=== PATIENT | male | born 1975 | race Caucasian/White ===

== ENCOUNTER 2017-05-16 22:51 | Observation (INO) | payer OTHER ==
[~2017-05-16] VITALS: Ht 172.7 cm; Wt 74.0 kg
[2017-05-16] MEDS ORDERED: SODIUM CHLORIDE 0.9% 1000ML 1,000 ML IV SCH (23:01)
[2017-05-16 23:09] LABS: BASO % 0.2 %; BASO ABS # 0.02 K/uL (0-0.2); COMPLETE YES; EOS % 1.4 %; HEMATOCRIT 50.8 % (42-52); IG% 0.2 %; LYMPH % 28.8 %; LYMPH ABS # 3.46 K/uL (1.2-3.4); MEAN CELL VOLUME 92.7 fL (80-100); MEAN CORPUSCULAR HEMOGLOBIN 33.6 pg (25-34); MEAN CORPUSCULAR HGB CONC 36.2 g/dl (32-36); MEAN PLATELET VOLUME 10.5 fL (7.4-10.4); MONO % 6.4 %; PLATELET COUNT 298 K/uL (130-400); RED BLOOD COUNT 5.48 M/uL (4.7-6.1); WHITE BLOOD COUNT 12.03 K/uL (4.8-10.8)
[2017-05-16 23:29] LABS: BLOOD UREA NITROGEN 15 mg/dl (7-18); BUN/CREATININE RATIO 13.9 (10-20); CALCIUM 8.9 mg/dl (8.5-10.1); CARBON DIOXIDE 28 mmol/L (21-32); CHLORIDE 105 mmol/L (98-107); GLUCOSE 133 mg/dl (70-99); MAGNESIUM 2.2 mg/dl (1.8-2.4); POTASSIUM 3.3 mmol/L (3.5-5.1); SODIUM 139 mmol/L (136-145)
[2017-05-16 23:30] LABS: PARTIAL THROMBOPLASTIN RATIO 1.2; PROTHROMBIN TIME (PATIENT) 10.5 SECONDS (9.0-12.0)
[2017-05-16] MEDS ORDERED: SODIUM CHLORIDE 0.9% 500ML 500 ML IV STA (23:37)
[2017-05-16] MEDS ORDERED: OPTIRAY 320 IV PRN (23:45)
[2017-05-17] MEDS ORDERED: POTASSIUM CHLORIDE 10 MEQ TABCR PO STA (00:19)
[2017-05-17] MEDS ORDERED: MoRPHine SULFATE 4 MG/ML 1 ML CARP\\VIAL IV STA (00:35)
--- NOTE | 2017-05-17 00:54 | History and Physical ---
History & Physical Date & Time of Service: May 17, 2017 at 00:54 . Chief Complaint: Chest Pain . Primary Care Physician: No Doctor, Assigned . History of Present Illness Source: patient, hospital records 41 YO male from [place]. He does not have a PCP. Enjoys good health. Physically active, without limitations. 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 Ate spaghetti for dinner tonight around 17:30. Laid down to rest. Awoke around 18:30 with chest pain. Pain described as heavy midsternal pressure 8/10 that radiated to his left arm. [place] diaphoretic and nauseated. No vomiting. Somewhat dyspneic. Called EMS. They administered aspirin and NTG without much improvement. Brought to ED. Received IV morphine with improvement of the pain. Smoker. No other personal risk factors for CAD. No apparent family history of premature vascular disease. . Past Medical/Surgical History No chronic medical problems. S/P amputation left ring finger for osteo. . Family History Mother- CKD Father- cirrhosis Brother- DM Grandmother- DM Aunt- DM Cousin- DM Grandfather- pancreatic Ca Grandmother- CKD . Social History Smoking Status: Current Every Day Smoker Alcohol Use: none Drug Use: none Occupational Status: employed Allergies Coded Allergies: Penicillins (Verified Allergy, Severe, HIVES-RASH, 05/16/17) Prednisone (Verified Allergy, Severe, ITCHY "ALL OVER", "FELT LIKE I WAS 20 FT. TALL"., 05/16/17) Home Medications No Active Prescriptions or Reported Meds Review of Systems As noted above in HPI. Otherwise, unremarkable. . Physical Exam Vital Signs Date Time Temp Pulse Resp B/P (MAP) Pulse Ox O2 Delivery O2 Flow Rate FiO2 05/17/17 00:35 87 20 129/75 98 Room Air 05/16/17 23:05 96 Room Air 05/16/17 22:59 92 05/16/17 22:54 95 Room Air 05/16/17 22:54 36.9 96 20 148/88 96 Room Air General Appearance: WD/WN, no apparent distress Head: normocephalic, atraumatic Eyes: normal inspection, PERRL, EOMI, sclerae normal ENT: normal ENT inspection, hearing grossly normal, pharynx normal Neck: supple, no adenopathy, thyroid normal, trachea midline Respiratory/Chest: lungs clear, normal breath sounds, no respiratory distress, no accessory muscle use Cardiovascular: regular rate, rhythm, no edema, no gallop, no JVD, no murmur, normal peripheral pulses, + pertinent finding (carotids 2/2; no pericardial friction rub) Abdomen/GI: normal bowel sounds, non tender, soft, no organomegaly, no pulsatile mass Extremities/Musculoskelatal: no calf tenderness, no pedal edema 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 (PERRL, EOMI, no dysarthria, no facial palsy), no motor/sensory deficits (grossly intact), alert, normal mood/ affect, oriented x 3 Skin: normal color, warm/dry Lymphatic: no adenopathy (cervical) Diagnostics Laboratory Results Results Past 24 Hours Test 05/16/17 22:30 05/16/17 23:07 Range/Units White Blood Count 12.03 4.8-10.8 K/uL Red Blood Count 5.48 4.7-6.1 M/uL Hemoglobin 18.4 14.0-18.0 g/dL Hematocrit 50.8 42-52 % Mean Corpuscular Volume 92.7 80-100 fL Mean Corpuscular Hemoglobin 33.6 25-34 pg Mean Corpuscular Hemoglobin Concent 36.2 32-36 g/dl Platelet Count 298 130-400 K/uL Mean Platelet Volume 10.5 7.4-10.4 fL Neutrophils (%) (Auto) 63.0 % Lymphocytes (%) (Auto) 28.8 % Monocytes (%) (Auto) 6.4 % Eosinophils (%) (Auto) 1.4 % Basophils (%) (Auto) 0.2 % Neutrophils # (Auto) 7.58 1.4-6.5 K/uL Lymphocytes # (Auto) 3.46 1.2-3.4 K/uL Monocytes # (Auto) 0.77 0.11-0.59 K/uL Eosinophils # (Auto) 0.17 0-0.5 K/uL Basophils # (Auto) 0.02 0-0.2 K/uL RDW Standard Deviation 44.3 36.4-46.3 fL RDW Coefficient of Variation 13.0 11.5-14.5 % Immature Granulocyte % (Auto) 0.2 % Immature Granulocyte # (Auto) 0.03 0.00-0.02 K/uL Prothrombin Time 10.5 9.0-12.0 SECONDS Prothromb Time International Ratio 1.0 0.9-1.1 Activated Partial Thromboplast Time 30.8 21.0-31.0 SECONDS Partial Thromboplastin Ratio 1.2 Sodium Level 139 136-145 mmol/L Potassium Level 3.3 3.5-5.1 mmol/L Chloride Level 105 98-107 mmol/L Carbon Dioxide Level 28 21-32 mmol/L Anion Gap 6.0 3-11 mmol/L Blood Urea Nitrogen 15 7-18 mg/dl Creatinine 1.10 0.60-1.40 mg/dl Est Creatinine Clear Calc Drug Dose 86.3 ml/min Estimated GFR () 96.8 Estimated GFR (Non- 83.5 BUN/Creatinine Ratio 13.9 10-20 Random Glucose 133 70-99 mg/dl Calcium Level 8.9 8.5-10.1 mg/dl Magnesium Level 2.2 1.8-2.4 mg/dl Total Creatine Kinase 81 39-308 U/L Creatine Kinase MB < 0.5 0.5-3.6 ng/ml Creatine Kinase MB Ratio 0-3.0 Troponin I < 0.015 0-0.045 ng/ml Lipase 138 73-393 U/L Chemistry Specimen Hemolysis Bedside Troponin I < 0.030 0-0.045 ng/ml Diagnostic Radiology Chest x-ray reviewed by the undersigned. No cardiomegaly, infiltrates, effusions, CHF, pneumothorax. Formal interpretation by Radiology pending. CT head reviewed by the undersigned. Preliminary Radiology report per [facility]: negative CTA chest reviewed by the undersigned. Preliminary Radiology report per [facility]: Negative for PE. Negative for aortic dissection. Calcified granulomas in lung and spleen. Calcified hilar, mediastinal, portocaval lymph nodes. Mild noncolcified tree-in-bud nodularity adjacent to the RLL and LLL calcified granulomas. Findings are most likely related to remote granulomatous disease, but activity of disease should be evaluated for clinically. . EKG EKG performed at 22:54 reviewed and demonstrated NSR at 88 / minute, no acute ST or T wave abnormalities. . Impression Assessment and Plan CHEST PAIN Suspect GI etiology. Check serial cardiac markers and EKG's. Consider EST if markers negative. Consult Cardiology if any concerns. ABNORMAL CT CHEST CT suggests old granulomatous disease. No fever, cough, hemoptysis, weight loss, etc. Patient advised to seek medical attention if he develops pulmonary symptoms. HYPOKALEMIA K = 3.3. Received KCl in ED. Recheck in a.m. SMOKING Importance of smoking cessation discussed. VTE PROPHYLAXIS Very low risk for VTE. Ambulate. Chemoprophylaxis or mechanical prophylaxis not indicated. DISPOSITION Expected discharge to home. . VTE Prophylaxis VTE Risk Assessment Done? Y/N: Yes Risk Level: Very Low Given or contraindicated: Treatment not indicated
--- NOTE | 2017-05-17 00:54 | EMERGENCY ROOM VISIT NOTE ---
History First contact with patient: 22:53 Chief Complaint: CHEST PAIN Stated Complaint: CHEST PAIN Nursing Triage Summary: patient states tonight at 1830 he had c/o left sided chest pain/pressure that radiating down his left arm. patient was given 324mg aspirin and nitro by EMS. patient states pain remains 8/10. patient also c/o numbness and tingling to extremities. History of Present Illness The patient is a 41 year old male who presents to the Emergency Room with complaints of left-sided chest pain that goes up to his shoulder and down his left arm with left arm and leg tingling since he woke up from sleep at 9:00 tonight. Patient went to bed at 6:30 and felt fine. 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 No prior history of heart disease. No family history of heart disease. No history of PE or DVT. No family history of clotting disorder. No injury to the area. He describes the pain as aching, ranging in severity 5 out of 10. Nothing makes it better or worse. EMS gave him aspirin nitroglycerin. This did not help. Patient denies dyspnea, abdominal pain, weakness, headache, lightheadedness, dizziness, recent illness, cold symptoms. He is tolerated by mouth fluids and food. Review of Systems See HPI for pertinent positives & negatives. A total of 10 systems reviewed and were otherwise negative. Past Medical/Surgical History none Social History Smoking Status: Current Every Day Smoker Smokeless Tobacco Use: No Alcohol Use: none Drug Use: none Occupation Status: employed Current/Historical Medications No Active Prescriptions or Reported Meds Physical Exam Vital Signs Date Time Temp Pulse Resp B/P (MAP) Pulse Ox O2 Delivery O2 Flow Rate FiO2 05/17/17 00:35 87 20 129/75 98 Room Air 05/16/17 23:05 96 Room Air 05/16/17 22:59 92 05/16/17 22:54 95 Room Air 05/16/17 22:54 36.9 96 20 148/88 96 Room Air Physical Exam VITALS: Vitals are noted on the nurse's note and reviewed by myself. Vital signs stable. GENERAL:pleasant male, in no acute distress, nondiaphoretic, well-developed well -nourished. SKIN: The skin was without rashes, erythema, edema, or bruising. There is no tenting of the skin. Capillary reflex less than 2 seconds. HEAD: Normocephalic atraumatic. EARS: External auditory canals clear, tympanic membranes pearly drummond without erythema or effusion bilaterally. EYES: Pupils equal round and reactive to light and accommodation. Conjunctivae without injection, sclerae without icterus. Extraocular movements intact. NOSE: Patent, turbinates without inflammation or discharge. MOUTH: Mucous membranes moist. Pharynx without erythema or exudate. Uvula midline. Airway patent. Tongue does not deviate. NECK: Supple without nuchal rigidity. No lymphadenopathy. No thyromegaly. Cervical spine is nontender. No JVD. HEART: Regular rate and rhythm without murmurs gallops or rubs. LUNGS: Clear to auscultation bilaterally without wheezes, rales or rhonchi. No dullness to percussion. No retractions or accessory muscle use. ABDOMEN: Positive bowel sounds x 4. Normal tympanic percussion. Soft, nontender, without masses or organomegaly. Castaneda sign negative. No guarding or rebound tenderness. MUSCULOSKELETAL: No muscle atrophy, erythema, or edema noted. 5 out of 5 strength throughout NEURO: Patient was alert and oriented to person place and time. Normal sensation to light and sharp touch. No focal neurological deficits. Cranial nerves II through XII grossly intact. No pronator drift. Cerebellar exam intact. Medical Decision & Procedures Laboratory Results 05/16/17 22:30 Red Blood Count 5.48, Mean Corpuscular Volume 92.7, Mean Corpuscular Hemoglobin 33.6, Mean Corpuscular Hemoglobin Concent 36.2, Mean Platelet Volume 10.5, Neutrophils (%) (Auto) 63.0, Lymphocytes (%) (Auto) 28.8, Monocytes (%) (Auto) 6.4, Eosinophils (%) (Auto) 1.4, Basophils (%) (Auto) 0.2, Neutrophils # (Auto) 7.58, Lymphocytes # (Auto) 3.46, Monocytes # (Auto) 0.77, Eosinophils # (Auto) 0.17, Basophils # (Auto) 0.02 05/16/17 22:30 Test 05/16/17 22:30 05/16/17 23:07 White Blood Count 12.03 K/uL (4.8-10.8) Red Blood Count 5.48 M/uL (4.7-6.1) Hemoglobin 18.4 g/dL (14.0-18.0) Hematocrit 50.8 % (42-52) Mean Corpuscular Volume 92.7 fL (80-100) Mean Corpuscular Hemoglobin 33.6 pg (25-34) Mean Corpuscular Hemoglobin Concent 36.2 g/dl (32-36) Platelet Count 298 K/uL (130-400) Mean Platelet Volume 10.5 fL (7.4-10.4) Neutrophils (%) (Auto) 63.0 % Lymphocytes (%) (Auto) 28.8 % Monocytes (%) (Auto) 6.4 % Eosinophils (%) (Auto) 1.4 % Basophils (%) (Auto) 0.2 % Neutrophils # (Auto) 7.58 K/uL (1.4-6.5) Lymphocytes # (Auto) 3.46 K/uL (1.2-3.4) Monocytes # (Auto) 0.77 K/uL (0.11-0.59) Eosinophils # (Auto) 0.17 K/uL (0-0.5) Basophils # (Auto) 0.02 K/uL (0-0.2) RDW Standard Deviation 44.3 fL (36.4-46.3) RDW Coefficient of Variation 13.0 % (11.5-14.5) Immature Granulocyte % (Auto) 0.2 % Immature Granulocyte # (Auto) 0.03 K/uL (0.00-0.02) Prothrombin Time 10.5 SECONDS (9.0-12.0) Prothromb Time International Ratio 1.0 (0.9-1.1) Activated Partial Thromboplast Time 30.8 SECONDS (21.0-31.0) Partial Thromboplastin Ratio 1.2 Anion Gap 6.0 mmol/L (3-11) Est Creatinine Clear Calc Drug Dose 86.3 ml/min Estimated GFR () 96.8 Estimated GFR (Non- 83.5 BUN/Creatinine Ratio 13.9 (10-20) Calcium Level 8.9 mg/dl (8.5-10.1) Magnesium Level 2.2 mg/dl (1.8-2.4) Total Creatine Kinase 81 U/L (39-308) Creatine Kinase MB < 0.5 ng/ml (0.5-3.6) Creatine Kinase MB Ratio (0-3.0) Troponin I < 0.015 ng/ml (0-0.045) Lipase 138 U/L (73-393) Chemistry Specimen Hemolysis Bedside Troponin I < 0.030 ng/ml (0-0.045) Medications Administered Medications (Trade) Dose Ordered Sig/Ilia Route Start Time Stop Time Status Last Admin Dose Admin Sodium Chloride 1,000 ml @ 50 mls/hr Q20H IV 05/16/17 23:01 06/15/17 23:00 05/16/17 23:11 50 MLS/HR Sodium Chloride 500 ml @ 999 mls/hr Q31M STAT IV 05/16/17 23:37 05/17/17 00:07 DC 05/16/17 23:37 999 MLS/HR Potassium Chloride (Klor-Con M10) 20 meq NOW STAT PO 05/17/17 00:19 05/17/17 00:20 DC 05/17/17 00:43 20 MEQ Morphine Sulfate (MoRPHine SULFATE INJ) 4 mg NOW STAT IV 05/17/17 00:35 05/17/17 00:36 DC 05/17/17 00:42 4 MG ED Course Prior records/ancillary studies reviewed. Triage Nursing notes reviewed. Additional history obtained from EMS The patient's history was concerning for chest pain and left sided tingling. Differential diagnosis: Etiologies such as cardiac ischemia, CVA, neurologic, aortic dissection, pulmonary embolism, pneumonia, pneumothorax, musculoskeletal, infections, pericarditis, myocarditis, esophageal rupture, gastrointestinal, as well as others were entertained. Physical examination: As above. ER treatment provided: EMS gave ASA and nitro with no change in symptoms On reassessment the patient felt better. Diagnostic interpretation by me: The electrocardiogram was negative for pathologic change. Normal sinus, normal intervals, no acute ST-T wave changes. Impression normal sinus rhythm interpreted by myself. The labs revealed negative troponin. Imaging studies: Chest x-ray with perihilar Lymph node enlargement per my interpretation. CTA negative for PE. Granulomatous disease. Head CT negative for intracranial bleed. Consultation: A consultation was placed with the hospitalist, Dr Lord. The case was discussed and diagnostics were reviewed. The patient was evaluated in the ER for further treatment. Exam and history seem consistent with chest pain with concerns for possible cardiac in etiology. Patient will be evaluated by medicine for possible admission. Negative CTA for PE. First troponin negative. Normal EKG.By the evaluation outlined above emergent etiologies such as aortic dissection, pulmonary embolism, pneumonia, pneumothorax, pericarditis, myocarditis, gastrointestinal, as well as others were deemed relatively unlikely. The pt informed about the findings as listed above. All questions were answered and pleased with the treatment. case reviewed with my Attending Medical Decision as above Medication Reconcilliation Current Medication List: was personally reviewed by me Blood Pressure Screening Patient's blood pressure: Normal blood pressure Impression Primary Impression: Substernal precordial chest pain Additional Impression: Tingling Departure Information Dispostion Being Evaluated By Hospitalist Condition FAIR Prescriptions No Active Prescriptions or Reported Meds Patient Instructions My [facility] Problem Qualifiers
[2017-05-17] MEDS ORDERED: NITROGLYCERIN 0.4 MG SL PER TAB CHARGE SL PRN (01:00)
[2017-05-17] MEDS ORDERED: ALUMINUM/MAGNESIUM/SIMETH (MAALOX MAX) 30 ML UDC PO PRN (01:00)
[2017-05-17] MEDS ORDERED: ACETAMINOPHEN 325 MG TAB PO PRN (01:00)
[2017-05-17] MEDS ORDERED: IV FLUIDS COMPLETED PRN (01:15)
[2017-05-17 01:39] VITALS: BP 116/68; PULSE 68; TEMP 36.9; O2SAT 95; Ht 172.7 cm; Wt 74.0 kg
[2017-05-17] MEDS ORDERED: PANTOprazole SOD 40 MG TAB PO ONE (01:45)
[2017-05-17 04:47] VITALS: BP 119/72; PULSE 72; TEMP 36.9; O2SAT 97
[2017-05-17 06:16] LABS: HEMATOCRIT 47.3 % (42-52); MEAN CELL VOLUME 93.7 fL (80-100); MEAN CORPUSCULAR HEMOGLOBIN 32.7 pg (25-34); MEAN CORPUSCULAR HGB CONC 34.9 g/dl (32-36); MEAN PLATELET VOLUME 10.7 fL (7.4-10.4); PLATELET COUNT 260 K/uL (130-400); RED BLOOD COUNT 5.05 M/uL (4.7-6.1)
[2017-05-17 06:43] LABS: ALT/SGPT 27 U/L (12-78); AMYLASE 32 U/L (25-115); AST/SGOT 10 U/L (15-37); BLOOD UREA NITROGEN 14 mg/dl (7-18); BUN/CREATININE RATIO 15.7 (10-20); CALCIUM 8.5 mg/dl (8.5-10.1); CARBON DIOXIDE 28 mmol/L (21-32); CHLORIDE 110 mmol/L (98-107); CREATININE 0.91 mg/dl (0.60-1.40); GLUCOSE 100 mg/dl (70-99); POTASSIUM 3.6 mmol/L (3.5-5.1); SODIUM 141 mmol/L (136-145)
[2017-05-17 06:48] LABS: ALB/GLOB RATIO 1.1 (0.9-2); ALKALINE PHOSPHATASE 70 U/L (45-117); CHOLESTEROL 195 mg/dl (0-200); CHOLESTEROL/HDL RATIO 5.9; HDL CHOLESTEROL 33 mg/dl; LDL CHOLESTEROL CALCULATED 113 mg/dl; TRIGLYCERIDES 247 mg/dl (0-150); VERY LOW DENSITY LIPOPROT CALC 49 mg/dl
--- NOTE | 2017-05-17 06:56 | DIAGNOSTIC IMAGING REPORT ---
HEAD WITHOUT CONTRAST (CT) CLINICAL HISTORY: 41 years-old Male presenting with Stroke. TECHNIQUE: Multidetector CT imaging of the head was performed without the use of intravenous contrast. IV contrast: None. A dose lowering technique was used consistent with the principles of ALARA (as low as reasonably achievable). COMPARISON: None. CT DOSE (mGy.cm): The estimated cumulative dose is 614.27 mGy.cm. FINDINGS: Diploma Dental Assistant topogram: Unremarkable. Ventricles and sulci normal in size. Brain parenchyma normal in appearance with preserved drummond-white differentiation. No mass effect or midline shift. No hemorrhage or acute territorial infarct. No extra-axial fluid collection. Paranasal sinuses and mastoid air cells clear. Calvarium intact. IMPRESSION: 1. No acute intracranial pathology. Electronically signed by: Raz Palmer M.D. 05/17/2017 6:54 AM Dictated Date/Time: 05/17/2017 6:53 AM
[2017-05-17 07:09] VITALS: BP 115/71; PULSE 81; TEMP 36.9; O2SAT 96
--- NOTE | 2017-05-17 07:21 | DIAGNOSTIC IMAGING REPORT ---
CT ANGIOGRAM OF THE CHEST CLINICAL HISTORY: Atypical chest pain. COMPARISON STUDY: Chest x-ray dated 05/16/2017. TECHNIQUE: Following the IV administration of 92 cc of Optiray 320, CT angiogram of the chest was performed from the upper abdomen to the thoracic inlet utilizing the pulmonary embolus protocol. Images are reviewed in the axial, sagittal, and coronal planes. 3-D MIPS images are created and assessed. IV contrast was administered without complication. A dose lowering technique was utilized adhering to the principles of ALARA. CT DOSE: 321.84 mGy.cm FINDINGS: Thyroid: Imaged portions of the thyroid gland are normal in size and attenuation. Thoracic aorta: The thoracic aorta is normal in caliber and demonstrates standard 3-vessel arch anatomy. No dissection is seen. Pulmonary vasculature: The pulmonary trunk is normal in caliber. There are no filling defects identified in main, lobar, or proximal segmental pulmonary branches to suggest pulmonary embolus. Evaluation of the peripheral vessels is degraded by motion artifact. Heart: The heart is normal in size and configuration, and without pericardial effusion. Lungs and pleural spaces: Evaluation of the lung parenchyma is degraded by respiratory motion artifact. Mild emphysematous change is observed. There is no airspace consolidation or pleural effusion. Numerous small calcified granulomas are identified. The trachea and central airways Are clear. Mediastinum: There is no mediastinal lymphadenopathy. There are numerous calcification containing mediastinal nodes. Reena: There is no hilar adenopathy. Calcification containing hilar nodes are noted. Axillae: There is no axillary lymphadenopathy. Upper abdomen: A 1.3 cm right adrenal nodule and a 1.1 cm left adrenal nodule meet CT criteria for fat-containing adenomas. There are calcified splenic granulomas. Skeletal structures: No lytic or blastic bony lesions are seen. IMPRESSION: 1. There is no evidence of pulmonary embolus in the main, lobar, or proximal segmental pulmonary arteries. 2. Mild emphysema. 3. There is no airspace consolidation or pleural effusion. 4. Findings are consistent with remote granulomatous infection. Electronically signed by: Andrey Cat M.D. 05/17/2017 7:20 AM Dictated Date/Time: 05/17/2017 7:16 AM
--- NOTE | 2017-05-17 07:22 | DIAGNOSTIC IMAGING REPORT ---
SINGLE VIEW CHEST CLINICAL HISTORY: Atypical chest pain. FINDINGS: An AP, portable, upright chest radiograph is obtained. No prior studies are available for comparison at the time of dictation. The examination is degraded by portable technique and patient rotation. The cardiomediastinal silhouette is unremarkable. The lungs and pleural spaces are clear. No pneumothorax is seen. The bony thorax is grossly intact. IMPRESSION: No active disease in the chest. Electronically signed by: Andrey Cat M.D. 05/17/2017 7:20 AM Dictated Date/Time: 05/17/2017 7:20 AM
--- NOTE | 2017-05-17 08:54 | Progress Note ---
Internal Med Progress Note Date of Service: May 17, 2017. Provider Documentation: SUBJECTIVE: mentions of having chest pain on mid chest across with radiation to left arm no SOB no JACOBS SL nitro does not help asking for pain medication no hypoxia or distress noted OBJECTIVE: Vital Signs-as noted below Exam: General-no sign of distress Eyes-sclera non icteric ENT-NAD Neck-supple, no JVD Lungs-CTA ,no wheeze or rales Heart-regular S1/S2 Abdomen-soft, non tender Extremities-no rash or deformity Neuro-AAO x3, no focal deficit Lab data as noted below. ASSESSMENT & PLAN: CHEST PAIN/ATYPICAL FOR ANGINA -presented with chest pain with radiation to arm CT chest negative for PE Suspect GI etiology -PPI added serial cardiac markers X2 negative and EKG-NSR , no ischemic change ordered for treadmill stress test at noon if 3rd troponin is negative ABNORMAL CT CHEST CT suggests old granulomatous disease. No fever, cough, hemoptysis, weight loss, etc. CT scan reviewed with Pulmonology -benign finding , no emergent intervention needed will benefit form out pt Pulmonology eval and repeat CT scan in 6-12 months pt is counselled for smoking cessation HYPOKALEMIA corrected SMOKING Importance of smoking cessation discussed. VTE PROPHYLAXIS Very low risk for VTE. Ambulate. DISPOSITION Expected discharge to home if cardiac stress test negative Vital Signs: Date Time Temp Pulse Resp B/P (MAP) Pulse Ox O2 Delivery O2 Flow Rate FiO2 05/17/17 07:09 36.9 81 20 115/71 (86) 96 Room Air 05/17/17 04:47 36.9 72 18 119/72 (88) 97 Room Air 05/17/17 04:06 Room Air 05/17/17 01:39 36.9 68 16 116/68 95 Room Air 05/17/17 01:06 76 20 139/88 98 05/17/17 00:35 87 20 129/75 98 Room Air 05/16/17 23:05 96 Room Air 05/16/17 22:59 92 05/16/17 22:54 95 Room Air 05/16/17 22:54 36.9 96 20 148/88 96 Room Air Lab Results: Results Past 24 Hours Test 05/16/17 22:30 05/16/17 23:07 05/17/17 05:23 Range/Units White Blood Count 12.03 9.60 4.8-10.8 K/uL Red Blood Count 5.48 5.05 4.7-6.1 M/uL Hemoglobin 18.4 16.5 14.0-18.0 g/dL Hematocrit 50.8 47.3 42-52 % Mean Corpuscular Volume 92.7 93.7 80-100 fL Mean Corpuscular Hemoglobin 33.6 32.7 25-34 pg Mean Corpuscular Hemoglobin Concent 36.2 34.9 32-36 g/dl Platelet Count 298 260 130-400 K/uL Mean Platelet Volume 10.5 10.7 7.4-10.4 fL Neutrophils (%) (Auto) 63.0 % Lymphocytes (%) (Auto) 28.8 % Monocytes (%) (Auto) 6.4 % Eosinophils (%) (Auto) 1.4 % Basophils (%) (Auto) 0.2 % Neutrophils # (Auto) 7.58 1.4-6.5 K/uL Lymphocytes # (Auto) 3.46 1.2-3.4 K/uL Monocytes # (Auto) 0.77 0.11-0.59 K/uL Eosinophils # (Auto) 0.17 0-0.5 K/uL Basophils # (Auto) 0.02 0-0.2 K/uL RDW Standard Deviation 44.3 45.6 36.4-46.3 fL RDW Coefficient of Variation 13.0 13.3 11.5-14.5 % Immature Granulocyte % (Auto) 0.2 % Immature Granulocyte # (Auto) 0.03 0.00-0.02 K/uL Prothrombin Time 10.5 9.0-12.0 SECONDS Prothromb Time International Ratio 1.0 0.9-1.1 Activated Partial Thromboplast Time 30.8 21.0-31.0 SECONDS Partial Thromboplastin Ratio 1.2 Sodium Level 139 141 136-145 mmol/L Potassium Level 3.3 3.6 3.5-5.1 mmol/L Chloride Level 105 110 98-107 mmol/L Carbon Dioxide Level 28 28 21-32 mmol/L Anion Gap 6.0 3.0 3-11 mmol/L Blood Urea Nitrogen 15 14 7-18 mg/dl Creatinine 1.10 0.91 0.60-1.40 mg/dl Est Creatinine Clear Calc Drug Dose 86.3 104.4 ml/min Estimated GFR () 96.8 121.8 Estimated GFR (Non- 83.5 105.0 BUN/Creatinine Ratio 13.9 15.7 10-20 Random Glucose 133 100 70-99 mg/dl Calcium Level 8.9 8.5 8.5-10.1 mg/dl Magnesium Level 2.2 1.8-2.4 mg/dl Total Creatine Kinase 81 39-308 U/L Creatine Kinase MB < 0.5 0.5-3.6 ng/ml Creatine Kinase MB Ratio 0-3.0 Troponin I < 0.015 < 0.015 0-0.045 ng/ml Lipase 138 94 73-393 U/L Chemistry Specimen Hemolysis Bedside Troponin I < 0.030 0-0.045 ng/ml Total Bilirubin 0.4 0.2-1 mg/dl Aspartate Amino Transf (AST/SGOT) 10 15-37 U/L Alanine Aminotransferase (ALT/SGPT) 27 12-78 U/L Alkaline Phosphatase 70 45-117 U/L Total Protein 6.1 6.4-8.2 gm/dl Albumin 3.2 3.4-5.0 gm/dl Globulin 2.9 2.5-4.0 gm/dl Albumin/Globulin Ratio 1.1 0.9-2 Triglycerides Level 247 0-150 mg/dl Cholesterol Level 195 0-200 mg/dl HDL Cholesterol 33 mg/dl LDL Cholesterol, Calculated 113 mg/dl VLDL Cholesterol, Calculated 49 mg/dl Cholesterol/HDL Ratio 5.9 Amylase Level 32 25-115 U/L
[2017-05-17] MEDS ORDERED: ASPIRIN 81 MG ECTAB PO SCH (09:00)
[2017-05-17] MEDS ORDERED: PANTOprazole SOD 40 MG TAB PO SCH (09:00)
[2017-05-17 10:54] VITALS: BP 110/71; PULSE 62; TEMP 36.8; O2SAT 95
[2017-05-17] MEDS ORDERED: NURSING VERBAL MED ORDER ONE (11:00)
[2017-05-17] MEDS ORDERED: KETOROLAC TROMETHAMINE 15 MG/ML VIAL IV PRN (11:45)
[2017-05-17 14:53] VITALS: BP 115/74; PULSE 64; TEMP 37; O2SAT 96
[2017-05-17] MEDS ORDERED: ASPEC81 PO (15:10)
--- NOTE | 2017-05-17 15:13 | Discharge Instructions ---
Discharge Instructions Date of Service May 17, 2017. Admission Reason for Admission: Chest Pain Discharge Discharge Diagnosis / Problem: CHEST PAIN /ATYPICAL FOR ANGINA /NEGATIVE CARDIAC STRESS TEST Discharge Goals Goal(s): Decrease discomfort, Diagnostic testing Activity Recommendations Activity Limitations: resume your previous activity . Instructions / Follow-Up Instructions / Follow-Up PLEASE ESTABLISH CARE WITH FAMILY PHYSICIAN REPEAT CT CHEST WITH CONTRAST IN 1 YEAR TO ASSESS EVIDENCE OF GRANULOMATOUS CHANGE IN LUNGS NEED TO FOLLOW UP WITH PULMONOLOGY /LUNG SPECIALIST TAKE ASPIRIN 81 MG DAILY PLEASE QUIT SMOKING TO REDUCE RISK FOR FUTURE HEART DISEASE /LUNG DISEASE / STROKE Current Hospital Diet Patient's current hospital diet: AHA Diet (Heart Healthy) Discharge Diet Recommended Diet: AHA Diet (Heart Healthy) Pending Studies Studies pending at discharge: yes List of pending studies: CT CHEST WITH CONTRAST IN 1 YEAR Laboratory Results Lipid Panel Test 05/17/17 05:23 Range/Units Triglycerides Level 247 H 0-150 mg/dl Cholesterol Level 195 0-200 mg/dl HDL Cholesterol 33 mg/dl Cholesterol/HDL Ratio 5.9 LDL Cholesterol, Calculated 113 mg/dl Medical Emergencies . Who to Call and When: Medical Emergencies: If at any time you feel your situation is an emergency, please call 911 immediately. . Non-Emergent Contact Non-Emergency issues call your: Primary Care Provider . . "Provider Documentation" section prepared by Shameka Painter. . VTE Core Measure Inpt VTE Proph given/why not?: Treatment not indicated
--- NOTE | 2017-05-17 15:17 | EXERCISE STRESS ECHO ---
*NOTICE TO RECEIVING DEMOCRAT AGENCY This information is strictly Confidential and protected under [place] law. [place] law prohibits you from making any further disclosure of this information unless further disclosure is expressly permitted by the written consent of the person to whom it pertains or is authorized by law. A general authorization for the release of medical or other information is not sufficient for this purpose. Hospital accepts no responsibility if the information is made available to any other person, INCLUDING THE PATIENT. Interpretation Summary * Name: BRIAN TENORIO JR Study Date: 05/17/2017 01:20 PM BP: 106/73 mmHg * Patient Location: C.2T\S\S229\S\2 HR: 67 * : 1975 (M/d/yyyy) Gender: Male Height: 68 in * Age: 41 yrs Ethnicity: [place] Weight: 163 lb * Ordering Physician: Shameka Painter * Referring Physician: Self, Referred * Performed By: Louise Jade RDCS * * Reason For Study: Chest pain * BSA: 1.9 m2 * _ workload achieved. * Exercise capacity is above average. * The stress echocardiogram is negative for inducible ischemia. * The stress ECG response was normal * Normal resting wall motion and no stress-induced wall motion abnormality. Procedure Details * ECHOEX, CPT #[id number] * ECHO DOPPLER, CPT #[id number] * ECHO COLOR FLOW, CPT #[id number] Left Ventricle * The left ventricle is normal in size. * There is normal left ventricular wall thickness. * Ejection Fraction = 55-60%. * Left ventricular systolic function is normal. * The left ventricular wall motion is normal at rest. * The left ventricular ejection fraction increases normally with stress. The left ventricular end-systolic cavity size reduces post-stress (normal response). The left ventricular wall motion with stress is normal. Right Ventricle * The right ventricle is normal in size and function. Atria * The left atrial size is normal. * Right atrial size is normal. * No ASD detected; PFO is not assessed. Mitral Valve * The mitral valve anatomy is normal. * There is no mitral valve stenosis. * Significant mitral regurgitation is absent. Tricuspid Valve * The tricuspid valve anatomy is normal. * There is no tricuspid stenosis. * There is trace tricuspid regurgitation. Aortic Valve * The aortic valve is trileaflet. * Aortic stenosis is absent. * There is no significant aortic regurgitation. Pulmonic Valve * The pulmonary valve is not well seen, but the Doppler examination is normal without significant regurgitation or stenosis. Great Vessels * The aortic root and proximal ascending aorta are normal sized. Pericardium * There is no pericardial effusion. Stress Parameters * Normal baseline electrocardiogram. * The stress ECG response was normal * The stress portion of this study was personally supervised by the undersigned interpreting physician. * Rest heart rate was '67' BPM. * Rest blood pressure was '106/73' * Maximum heart rate achieved was 150 bpm. * Maximum heart rate was 83 % of maximum age-predicted heart rate. * Maximum blood pressure was '156/63' * Total exercise time was '9:16' * Maximum exercise MET level achieved was '10.50' METS * Maximum treadmill speed was '4.20' miles per hour. * Maximum treadmill elevation was '16.00'% grade. * Exercise was terminated due to 'patient fatigue' MMode 2D Measurements and Calculations IVSd 0.93 cm LVIDd 3.9 cm LVIDs 2.7 cm LVPWd 0.89 cm IVS/LVPW 1.0 FS 31.7 % EDV(Teich) 65.4 ml ESV(Teich) 25.9 ml EF(Teich) 60.3 % EDV(cubed) 58.8 ml ESV(cubed) 18.7 ml EF(cubed) 68.1 % LV mass(C)d 106.3 grams LV mass(C)dI 56.7 grams/m\S\2 SV(Teich) 39.5 ml SI(Teich) 21.1 ml/m\S\2 SV(cubed) 40.0 ml SI(cubed) 21.4 ml/m\S\2 Ao root diam 3.0 cm Ao root area 7.2 cm\S\2 ACS 1.9 cm LA dimension 2.4 cm asc Aorta Diam 3.0 cm LA/Ao 0.79 LVOT diam 2.0 cm LVOT area 3.1 cm\S\2 LVAd ap4 25.5 cm\S\2 LVLd ap4 7.6 cm EDV(MOD-sp4) 70.8 ml EDV(sp4-el) 72.1 ml LVAs ap4 15.3 cm\S\2 LVLs ap4 6.2 cm ESV(MOD-sp4) 31.8 ml ESV(sp4-el) 31.9 ml EF(MOD-sp4) 55.0 % EF(sp4-el) 55.8 % LVAd ap2 22.8 cm\S\2 LVLd ap2 7.5 cm EDV(MOD-sp2) 59.2 ml EDV(sp2-el) 59.3 ml LVAs ap2 14.4 cm\S\2 LVLs ap2 7.1 cm ESV(MOD-sp2) 24.8 ml ESV(sp2-el) 24.9 ml EF(MOD-sp2) 58.1 % EF(sp2-el) 58.1 % LVLd %diff -2.39 % EDV(MOD-bp) 65.1 ml LVLs %diff 12.8 % ESV(MOD-bp) 29.8 ml EF(MOD-bp) 54.2 % SV(MOD-sp4) 39.0 ml SI(MOD-sp4) 20.8 ml/m\S\2 SV(MOD-sp2) 34.4 ml SI(MOD-sp2) 18.4 ml/m\S\2 SV(MOD-bp) 35.3 ml SI(MOD-bp) 18.8 ml/m\S\2 SV(sp4-el) 40.3 ml SI(sp4-el) 21.5 ml/m\S\2 SV(sp2-el) 34.5 ml SI(sp2-el) 18.4 ml/m\S\2 Doppler Measurements and Calculations MV E max shivani 73.7 cm/sec MV A max shivani 52.9 cm/sec MV E/A 1.4 MV dec time 0.11 sec Ao V2 max 100.8 cm/sec Ao max PG 4.1 mmHg Ao max PG (full) 1.3 mmHg KEVIN(V,A) 2.5 cm\S\2 KEVIN(V,D) 2.5 cm\S\2 LV V1 max PG 2.7 mmHg LV V1 max 82.5 cm/sec PA V2 max 76.6 cm/sec PA max PG 2.3 mmHg PA acc slope 420.5 cm/sec\S\2 PA acc time 0.13 sec PI max shivani 132.8 cm/sec PI max PG 7.1 mmHg PI dec slope 180.5 cm/sec\S\2 PI P1/2t 215.5 msec PA pr(Accel) 18.8 mmHg
--- NOTE | 2017-05-17 17:05 | Discharge Summary ---
Discharge Summary Date of Service May 17, 2017. Discharge Summary Admission Date: May 17, 2017 at 00:53 Discharge Date: May 17, 2017 Principal Diagnosis: CHEST PAIN /ATYPICAL FOR ANGINA /NEGATIVE CARDIAC STRESS TEST Procedures: CARDIAC EXERCISE STRESS TEST : NEGATIVE FOR STRESS INDUCED ISCHEMIA The stress echocardiogram is negative for inducible ischemia. The stress ECG response was normal Normal resting wall motion and no stress-induced wall motion abnormality. CT CHEST WITH CONTRAST : 1. There is no evidence of pulmonary embolus in the main, lobar, or proximal segmental pulmonary arteries. 2. Mild emphysema. 3. There is no airspace consolidation or pleural effusion. 4. Findings are consistent with remote granulomatous infection. Medication Reconciliation New Medications: Aspirin (Aspirin EC Low Dose) 81 Mg Ectab 81 MG PO QAM for 30 Days, #30 TAB OVER THE COUNTER , TAKE WITH FULL STOMACH Admission Information HPI (per Admitting provider): 41 YO male from [place]. He does not have a PCP. Enjoys good health. Physically active, without limitations. 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 Ate spaghetti for dinner tonight around 17:30. Laid down to rest. Awoke around 18:30 with chest pain. Pain described as heavy midsternal pressure 8/10 that radiated to his left arm. [place] diaphoretic and nauseated. No vomiting. Somewhat dyspneic. Called EMS. They administered aspirin and NTG without much improvement. Brought to ED. Received IV morphine with improvement of the pain. Smoker. No other personal risk factors for CAD. No apparent family history of premature vascular disease. . Physical Exam (per Admitting): General Appearance: WD/WN, no apparent distress Head: normocephalic, atraumatic Eyes: normal inspection, PERRL, EOMI, sclerae normal ENT: normal ENT inspection, hearing grossly normal, pharynx normal Neck: supple, no adenopathy, thyroid normal, trachea midline Respiratory/Chest: lungs clear, normal breath sounds, no respiratory distress, no accessory muscle use Cardiovascular: regular rate, rhythm, no edema, no gallop, no JVD, no murmur , normal peripheral pulses, + pertinent finding (carotids 2/2; no pericardial friction rub) Abdomen/GI: normal bowel sounds, non tender, soft, no organomegaly, no pulsatile mass Extremities/Musculoskelatal: no calf tenderness, no pedal edema Neurologic/Psych: 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 No fever, cough, hemoptysis, weight loss, etc. CT scan reviewed with Pulmonology -benign finding , no emergent intervention needed will benefit form out pt Pulmonology eval and repeat CT scan in 6-12 months pt is counselled for smoking cessation HYPOKALEMIA corrected SMOKING Importance of smoking cessation discussed. VTE PROPHYLAXIS Very low risk for VTE. Ambulate. DISPOSITION Expected discharge to home if cardiac stress test negative Discharge Instructions Discharge Instructions Date of Service May 17, 2017. Admission Reason for Admission: Chest Pain Discharge Discharge Diagnosis / Problem: CHEST PAIN /ATYPICAL FOR ANGINA /NEGATIVE CARDIAC STRESS TEST Discharge Goals Goal(s): Decrease discomfort, Diagnostic testing Activity Recommendations Activity Limitations: resume your previous activity . Instructions / Follow-Up Instructions / Follow-Up PLEASE ESTABLISH CARE WITH FAMILY PHYSICIAN REPEAT CT CHEST WITH CONTRAST IN 1 YEAR TO ASSESS EVIDENCE OF GRANULOMATOUS CHANGE IN LUNGS NEED TO FOLLOW UP WITH PULMONOLOGY /LUNG SPECIALIST TAKE ASPIRIN 81 MG DAILY PLEASE QUIT SMOKING TO REDUCE RISK FOR FUTURE HEART DISEASE /LUNG DISEASE / STROKE Current Hospital Diet Patient's current hospital diet: AHA Diet (Heart Healthy) Discharge Diet Recommended Diet: AHA Diet (Heart Healthy) Pending Studies Studies pending at discharge: yes List of pending studies: CT CHEST WITH CONTRAST IN 1 YEAR Laboratory Results Lipid Panel Test 05/17/17 05:23 Range/Units Triglycerides Level 247 H 0-150 mg/dl Cholesterol Level 195 0-200 mg/dl HDL Cholesterol 33 mg/dl Cholesterol/HDL Ratio 5.9 LDL Cholesterol, Calculated 113 mg/dl Medical Emergencies . Who to Call and When: Medical Emergencies: If at any time you feel your situation is an emergency, please call 911 immediately. . Non-Emergent Contact Non-Emergency issues call your: Primary Care Provider . . "Provider Documentation" section prepared by Shameka Painter. . VTE Core Measure Inpt VTE Proph given/why not?: Treatment not indicated
[2017-05-17 17:14] VITALS: BP 115/74; PULSE 64; TEMP 37; O2SAT 96
== END 2017-05-17 18:08 | disposition home or self-care (01) ==
LOC: EDBD 22:51 → C.EDA 22:56 → C.2T 05-17 00:53 → ENRESERV 05-17 01:02
PROVIDERS: ADMIT Hospitalist; ATTEND Hospitalist
DX: R07.89 Other chest pain (principal); R91.8 Other nonspecific abnormal finding of lung field; E87.6 Hypokalemia; F17.200 Nicotine dependence, unspecified, uncomplicated; Z84.1 Family history of disorders of kidney and ureter; Z83.3 Family history of diabetes mellitus; Z80.0 Family history of malignant neoplasm of digestive organs